=== PATIENT | female | born 1970 | race African-American/Black ===

== ENCOUNTER 2018-07-27 09:52 | Emergency (ER) | payer SELFPAY ==
[~2018-07-27] VITALS: Ht 175.3 cm; Wt 82.0 kg
[2018-07-27] MEDS ORDERED: IBUPROFEN 800MG TABLET PO ONE (11:00)
[2018-07-27 12:40] VITALS: BP 121/79
== END 2018-07-27 13:02 | disposition home or self-care (01) ==
LOC: ER 09:52
DX: S10.93XA Contusion of unspecified part of neck, initial encounter (principal); S80.01XA Contusion of right knee, initial encounter; S30.0XXA Contusion of lower back and pelvis, initial encounter; S20.219A Contusion of unspecified front wall of thorax, initial encounter; F12.10 Cannabis abuse, uncomplicated; F17.200 Nicotine dependence, unspecified, uncomplicated; V49.49XA Driver injured in collision with other motor vehicles in traffic accident, initial encounter; W22.11XA Striking against or struck by driver side automobile airbag, initial encounter; Y93.89 Activity, other specified; Y92.89 Other specified places as the place of occurrence of the external cause; Y99.8 Other external cause status
CPT/HCPCS: 71045; 72040; 73562; 81025; 99283